=== PATIENT | female | born 1950 | race Hispanic/Latino ===

== ENCOUNTER 2023-12-11 05:01 | Inpatient (IN) | payer OTHER ==
[2023-12-11] MEDS ORDERED: KETOROLAC 30 MG/ML INJ ONE (05:25)
[2023-12-11] MEDS ORDERED: DIPHENHYDRAMINE 50 MG/ML VIAL ONE (05:25)
[2023-12-11] MEDS ORDERED: GUAIFENESIN/DM 5 ML UCUP ONE (05:26)
[2023-12-11] MEDS ORDERED: METOCLOPRAMIDE 10 MG/2mL INJ ONE (05:26)
[2023-12-11] MEDS ORDERED: NA CHLORIDE 0.9% 500 ML ONE (05:26)
[2023-12-11] MEDS ORDERED: MORPHINE 2 MG/ML SYR ONE (05:26)
[2023-12-11 06:32] LABS: Absolute Lymphocytes (CBC) 2.8 K/uL (0.7-4.9); Absolute Monocytes 0.6 K/uL (0.1-1.3); Absolute Neutrophil 1.5 K/uL (1.8-8.0); Basophils % 0.2 % (0-1.3); Eosinophils % 0.2 % (0-4.4); Hematocrit 37.4 % (36.0-45.0); Hemoglobin 12.5 g/dL (12.0-15.0); Lymphocytes % 56.9 % (15.3-44.8); MCH 28.5 pg (27.0-35.0); MCHC 33.4 g/dL (32.0-36.0); MCV 85.5 fL (80-100); MPV 9.8 fL (7.6-11.3); Monocytes % 12.1 % (3.3-12.3); Neutrophils % 30.6 % (41.7-73.7); Nucleated Red Blood Cells % 0.1 % (0-0); Platelets 249 thou/uL (152-406); RBC Red Blood Cell Count 4.37 M/uL (3.86-4.86); Red Cell Distribution Width 13.5 % (12.1-15.2)
[2023-12-11 06:48] LABS: Albumin 4.1 g/dL (3.4-5.0); Albumin/Globulin Ratio 1.2 (1.1-1.8); Anion Gap 16.3 mEq/L (5.0-15.0); Bilirubin Direct 0.2 mg/dL (0-0.2); Bilirubin Indirect, Calculated 0.5 mg/dL (0.2-0.8); Bilirubin Total 0.7 mg/dL (0.2-1.0); Globulin 3.5 g/dL (2.3-3.5); Magnesium 2.4 mg/dL (1.6-2.4); Potassium 4.3 mEq/L (3.5-5.1); Protein, Total 7.6 g/dL (6.4-8.2); Troponin High Sensitivity 12.6 pg/mL (<58.9)
[2023-12-11 07:05] LABS: PT Prothrombin Time 11.3 SECONDS (9.4-12.5); Protime INR 1.01
--- NOTE | 2023-12-11 07:26 | EDPHYS ---
Physician Documentation [facility] Name: Genevieve Loza Age: 73 yrs Sex: Female : 1950 Arrival Date: 12/11/2023 Time: 05:01 Bed 16 Private MD: ED Physician Daniel Bermudez HPI: 12/10 05:08 This 73 yrs old Female presents to ER via Unassigned with complaints of Chest sp4 Pain. 05:48 73-year-old female presents with complaint of feeling unwell, chest pain shortness of sp4 breath generalized weakness after she was diagnosed with coronavirus about 1 week ago. Her prescriber primary physician prescribed her Paxlovid, Paxlovid does not seem to help very well . . Historical: - Allergies: 05:26 No Known Allergies; al5 - PMHx: 05:26 Diabetes mellitus; Hypertensive disorder; al5 - PSHx: 05:26 hysterectomy; al5 - Immunization history:: Adult Immunizations up to date. - Infectious Disease History:: Denies. - Social history:: Smoking status: Patient denies any tobacco usage or history of. - Family history:: not pertinent. ROS: 05:48 Constitutional: Negative for fever, positive for chills, positive generalized weakness, sp4 positive chest pain, positive shortness of breath, positive cough, 05:48 All other systems are negative, Exam: 05:47 Constitutional: This is a well developed, well nourished patient who is awake, alert, sp4 and in no acute distress. Head/Face: Normocephalic, atraumatic. Eyes: Pupils equal round and reactive to light, extra-ocular motions intact. Lids and lashes normal. Conjunctiva and sclera are not injected. Cornea within normal limits. Periorbital areas with no swelling, redness, or edema. ENT: Nares patent. No nasal discharge, no septal abnormalities noted. Tympanic membranes are normal and external auditory canals are clear. Oropharynx with no redness, swelling, or masses, exudates, or evidence of obstruction, uvula midline. Mucous membranes moist. Neck: Trachea midline, no thyromegaly or masses palpated, and no cervical lymphadenopathy. Supple, full range of motion without nuchal rigidity, or vertebral point tenderness. Chest/axilla: Normal chest wall appearance and motion. Nontender with no deformity. No lesions are appreciated. Cardiovascular: Regular rate and rhythm with a normal S1 and S2. No gallops, murmurs, or rubs. Normal PMI, no JVD. No pulse deficits. Respiratory: Lungs have equal breath sounds bilaterally, clear to auscultation and percussion. No rales, rhonchi or wheezes noted. No increased work of breathing, no retractions or nasal flaring. Abdomen/GI: Soft, with normal bowel sounds. No distension or tympany. No guarding or rebound. No evidence of tenderness throughout. Back: No spinal tenderness. No costovertebral tenderness. Skin: Warm, dry with normal turgor. Normal color with no rashes, no lesions, and no evidence of cellulitis. MS/ Extremity: Pulses equal, no cyanosis. Neurovascular intact. Full, normal range of motion. Neuro: Awake and alert, GCS 15, oriented to person, place, time, and situation. Cranial nerves II-XII grossly intact. Motor strength 5/5 in all extremities. Sensory grossly intact. Psych: Awake, alert, with orientation to person, place and time. Behavior, mood, and affect are within normal limits 05:47 ECG was reviewed by the Attending Physician. Vital Signs: 05:15 BP 147 / 75; Pulse 56; Resp 16; Pulse Ox 99% on R/A; al5 05:25 BP 155 / 57; Pulse 56; Resp 18; Temp 97.4(TE); Pulse Ox 99% on R/A; Weight 56.7 kg; al5 Height 5 ft. 0 in. ; Pain 9/10; 05:30 BP 144 / 53; Pulse 53; Resp 14; Pulse Ox 99% on R/A; al5 06:00 BP 114 / 54; Pulse 49; Resp 15; Pulse Ox 96% on R/A; al5 06:30 BP 106 / 63; Pulse 48; Resp 14; Pulse Ox 97% on R/A; al5 07:13 BP 111 / 63; Pulse 50; Resp 17; Pulse Ox 97% on R/A; ap3 05:25 Body Mass Index 24.41 (56.70 kg, 152.4 cm) al5 05:25 Pain Scale: Adult al5 MDM: 05:11 Patient medically screened. sp4 05:48 Differential diagnosis: acute pericarditis, anxiety, chest wall pain, esophagitis, sp4 pleurisy. HEART Score: History: Slightly Suspicious (0), ECG: Normal (0), Age: > or = 65 years (2), Risk Factors: 1 or 2 risk factors (1), Troponin: < or = 1 x Normal Limit (0), Total Score = 3. The patient was not given aspirin in the Emergency Department. Data reviewed: vital signs, nurses notes, old medical records, lab test result(s), EKG, radiologic studies, plain films. ED course: We will proceed with Cardiologic workup.. 07:26 ED course: XR CHEST 1 VIEW CLINICAL INDICATION: Chest pain COMPARISON: Chest radiograph 4 08/29/2022 FINDINGS: LUNGS/PLEURAL SPACES: The lungs are clear. No pleural effusion. No pneumothorax. HEART/MEDIASTINUM: Heart is normal in size. Atherosclerotic calcification at the aortic arch. BONES/UPPER ABDOMEN/SOFT TISSUES: Unremarkable. IMPRESSION: No radiographic evidence of active pulmonary process. . 07:27 ED course: Patient apparently has significant hyponatremia probably secondary to HCTZ. sp4 Warrants repeat BMP and admission for IV saline hydration for further management in the hospital also for management of COVID-19, and evaluation for chest pain. 12/10 05:08 Order name: XRAY Chest (1 view) 4 12/10 05:08 Order name: Basic Metabolic Panel; Complete Time: 07:15 4 12/10 05:08 Order name: CBC with Diff; Complete Time: 07:15 4 12/10 05:08 Order name: LFT's; Complete Time: 07:15 4 12/10 05:08 Order name: Magnesium; Complete Time: 07:15 sp4 12/10 05:08 Order name: NT PRO-BNP; Complete Time: 07:15 4 12/10 05:08 Order name: PT-INR; Complete Time: 07:15 4 12/10 05:08 Order name: Troponin HS; Complete Time: 07:15 sp4 12/10 07:21 Order name: BMP 4 12/10 07:22 Order name: COVID-19 SARS RT PCR 4 12/10 07:22 Order name: Troponin High Sensitivity [facility] 12/10 07:23 Order name: TSH 4 12/10 07:23 Order name: T4 Free 4 12/10 07:24 Order name: Osmolality, Serum la1 12/10 07:24 Order name: Urine Sodium Random la1 12/10 07:24 Order name: Urine Potassium Random la1 12/10 07:24 Order name: Urine Creatinine la1 12/10 07:45 Order name: SARS RAPID ap3 12/10 10:20 Order name: T4 Free EDMS 12/10 10:20 Order name: Thyroid Stimulating Hormone EDMS 12/10 10:49 Order name: Cortisol EDMS 12/10 05:08 Order name: Cardiac monitoring; Complete Time: 05:30 sp4 12/10 05:08 Order name: EKG - Nurse/Tech; Complete Time: 05:30 sp4 12/10 05:08 Order name: IV Saline Lock; Complete Time: 05:50 sp4 12/10 05:08 Order name: Labs collected and sent; Complete Time: 05:50 sp4 12/10 05:08 Order name: O2 Per Protocol; Complete Time: 05:30 sp4 12/10 05:08 Order name: O2 Sat Monitoring; Complete Time: 05:30 sp4 12/10 08:18 Order name: Labs - recollect needed: recollect 2 green tops; Complete Time: 10:04 bd EC:47 Rate is 57 beats/min. Rhythm is regular, Sinus bradycardia. QRS [place] is Normal. AR sp4 interval is normal. QRS interval is normal. QT interval is normal. No Q waves. T waves are Normal. No ST changes noted. Clinical impression: No evidence of ischemia. Interpreted by me. Reviewed by me. Administered Medications: 05:50 Drug: NS 0.9% IV 500 ml IV at bolus once Route: IV; Rate: bolus; Site: left antecubital;al5 06:45 Follow up: Response: No adverse reaction; IV Status: Completed infusion; IV Intake: al5 500ml 05:50 Drug: morphine IVP or IV 2 mg IVP once over 4 mins Route: IVP; Infused Over: 4 mins; al5 Site: left antecubital; 06:45 Follow up: Response: No adverse reaction al5 05:50 Drug: Ketorolac IVP 15 mg IVP once Route: IVP; Site: left antecubital; al5 06:45 Follow up: Response: No adverse reaction al5 05:50 Drug: metoCLOPramide IVP 10 mg IVP once; over 1 to 2 minutes Route: IVP; Site: left al5 antecubital; 06:45 Follow up: Response: No adverse reaction al5 06:45 Follow up: Response: No adverse reaction al5 05:50 Drug: diphenhydrAMINE IVP 12.5 mg IVP once Route: IVP; Site: left antecubital; al5 06:45 Follow up: Response: No adverse reaction al5 05:50 Drug: Dextromethorphan-Guaifenesin PO Liquid 10 mg-100 mg/5 mL 10 ml PO once Route: PO; al5 06:45 Follow up: Response: No adverse reaction al5 07:56 Drug: NS 0.9% IV 1000 ml IV at 100 ml/hr continuous Route: IV; Rate: 100 ml/hr; Site: kc6 left antecubital; Disposition: 07:23 Critical Care: not applicable. sp4 Disposition Summary: 12/11/23 07:26 Hospitalization Ordered Notes: Hospitalization Status: Inpatient Admission sp4 Provider: Bin Padilla sp4 Condition: Guarded sp4 Problem: new sp4 Symptoms: are unchanged sp4 Bed/Room Type: Standard sp4 Location: Intensive Care Unit(12/11/23 12:54) bd Room Assignment: 8-(12/11/23 13:05) bd Diagnosis - Hypo-osmolality and hyponatremia sp4 - Acute COVID-19, hyponatremia, generalized weakness, chest pain, shortness of breath sp4 Forms: - Medication Reconciliation Form sp4 - SBAR form sp4 - Leadership Thank You Letter sp4 Critical care time excluding procedures: 07:23 Critical care time: Bedside Care: 36 minutes, Consultation: 12 minutes, Family sp4 Intervention: 12 minutes. Total time: 60 minutes Signatures: Dispatcher [employer] EDMS Denisse Wall Kaitlyn, RN RN [id number] Daniel Bermudez MD MD sp4 Macie Hayward RN RN al5 Corrections: (The following items were deleted from the chart) 07:22 07:22 SARS-COV-2 RT PCR+MOL.LAB.BRZ ordered. EDMS EDMS 07:23 07:23 THYROID STIMULAT HORMONE+C.LAB.BRZ ordered. EDMS EDMS 07:23 07:23 T4 FREE+C.LAB.BRZ ordered. EDMS EDMS 07:25 07:25 OSMOLALITY, SERUM+SC.LAB.BRZ ordered. EDMS EDMS 07:25 07:25 URINE SODIUM RANDOM+CHEM UR.LAB.BRZ ordered. EDMS EDMS 07:25 07:25 URINE POTASSIUM RANDOM+CHEM UR.LAB.BRZ ordered. EDMS EDMS 07:25 07:25 URINE CREATININE+CHEM UR.LAB.BRZ ordered. EDMS EDMS 07:46 07:46 SARS-COV-2 Antigen Rapid+I.LAB.BRZ ordered. EDMS EDMS 10:51 07:26 Intensive Care Unit sp4 bd 10:51 07:26 sp4 bd 12:54 10:51 [facility] ER HOLD bd bd 12:54 10:51 ERHOLD- bd bd 13:05 12:54 6- bd bd
--- NOTE | 2023-12-11 07:26 | ER ---
Nurse's Notes [facility] Name: Genevieve Loza Age: 73 yrs Sex: Female : 1950 Arrival Date: 12/11/2023 Time: 05:01 Bed 16 Private MD: Diagnosis: Hypo-osmolality and hyponatremia;Acute COVID-19, hyponatremia, generalized weakness, chest pain, shortness of breath Presentation: 12/10 05:25 Chief complaint: Patient states: c/o CP and shortness of breath for past hour, states al5 she was diagnosed with covid 1 week ago. Coronavirus screen: Client reports previous positive COVID test result. Ebola Screen: No symptoms or risks identified at this time. Initial Sepsis Screen: Does the patient meet any 2 criteria? No. Patient's initial sepsis screen is negative. Does the patient have a suspected source of infection? No. Patient's initial sepsis screen is negative. Risk Assessment: Do you want to hurt yourself or someone else? Patient reports no desire to harm self or others. Onset of symptoms was December 11, 2023. 05:25 Method Of Arrival: Ambulatory al5 05:25 Acuity: DILEEP 2 al5 Triage Assessment: 05:27 General: Appears in no apparent distress. Behavior is calm, cooperative. Pain: al5 Complains of pain in chest Pain currently is 9 out of 10 on a pain scale. EENT: No signs and/or symptoms were reported regarding the EENT system. Neuro: Level of Consciousness is awake, alert, obeys commands, Oriented to person, place, time, situation. Cardiovascular: Reports chest pain, Capillary refill < 3 seconds Patient's skin is warm and dry. Rhythm is sinus bradycardia. Respiratory: Airway is patent Respiratory effort is even, unlabored, Respiratory pattern is regular, symmetrical. GI: No signs and/or symptoms were reported involving the gastrointestinal system. : No signs and/or symptoms were reported regarding the genitourinary system. Derm: Skin is intact, Skin is pink, warm \T\ dry. normal. Musculoskeletal: No signs and/or symptoms reported regarding the musculoskeletal system. Historical: - Allergies: 05:26 No Known Allergies; al5 - PMHx: 05:26 Diabetes mellitus; Hypertensive disorder; al5 - PSHx: 05:26 hysterectomy; al5 - Immunization history:: Adult Immunizations up to date. - Infectious Disease History:: Denies. - Social history:: Smoking status: Patient denies any tobacco usage or history of. - Family history:: not pertinent. Screenin:28 [facility] ED Fall Risk Assessment (Adult) History of falling in the last 3 months, al5 including since admission No falls in past 3 months (0 pts) Confusion or Disorientation No (0 pts) Intoxicated or Sedated No (0 pts) Impaired Gait No (0 pts) Mobility Assist Device Used No (0 pt) Altered Elimination No (0 pt) Score/Fall Risk Level 0 - 2 = Low Risk Oriented to surroundings, Maintained a safe environment, Hourly rounding (assess needs \T\ fall precautionary measures) done. Abuse screen: Denies threats or abuse. Denies injuries from another. Nutritional screening: No deficits noted. Tuberculosis screening: No symptoms or risk factors identified. Assessment: 05:28 General: see triage assessment.. Pain: Pain does not radiate. Pain began 1 hour ago. al5 06:30 Reassessment: Patient appears in no apparent distress at this time. Patient and/or al5 family updated on plan of care and expected duration. Pain level reassessed. Patient is alert, oriented x 3, equal unlabored respirations, skin warm/dry/pink. Patient is alert/active/playful, equal unlabored respirations, skin warm/dry/pink. Patient states feeling better. 07:13 Reassessment: Patient and/or family updated on plan of care and expected duration. Pain ap3 level reassessed. Patient is alert, oriented x 3, equal unlabored respirations, skin warm/dry/pink. Vital Signs: 05:15 BP 147 / 75; Pulse 56; Resp 16; Pulse Ox 99% on R/A; al5 05:25 BP 155 / 57; Pulse 56; Resp 18; Temp 97.4(TE); Pulse Ox 99% on R/A; Weight 56.7 kg; al5 Height 5 ft. 0 in. ; Pain 9/10; 05:30 BP 144 / 53; Pulse 53; Resp 14; Pulse Ox 99% on R/A; al5 06:00 BP 114 / 54; Pulse 49; Resp 15; Pulse Ox 96% on R/A; al5 06:30 BP 106 / 63; Pulse 48; Resp 14; Pulse Ox 97% on R/A; al5 07:13 BP 111 / 63; Pulse 50; Resp 17; Pulse Ox 97% on R/A; ap3 05:25 Body Mass Index 24.41 (56.70 kg, 152.4 cm) al5 05:25 Pain Scale: Adult al5 ED Course: 05:07 Patient arrived in ED. jb4 05:08 Daniel Bermudez MD is Attending Physician. sp4 05:14 Macie Hayward, [place] is Primary Nurse. al5 05:26 Triage completed. al5 05:28 Arm band placed on right wrist. Patient placed in the treatment room, on a stretcher. al5 05:28 EKG completed in triage. Results shown to MD. al5 05:29 Patient has correct armband on for positive identification. Bed in low position. Call al5 light in reach. Side rails up X 1. Provided Education on: processes and procedures.. Client placed on continuous cardiac and pulse oximetry monitoring. NIBP monitoring applied. environmental monitoring specialist on. 05:29 No provider procedures requiring assistance completed. O2 via room air. al5 05:50 Initial lab(s) drawn, by me, sent to lab. EKG done, by ED staff, reviewed by Daniel Bermudez MD. Inserted saline lock: 22 gauge in left antecubital area, using aseptic technique. Blood collected. 06:02 XRAY Chest (1 view) In Process Unspecified. EDMS 06:46 Troponin HS Sent. al5 06:46 PT-INR Sent. al5 06:46 NT PRO-BNP Sent. al5 06:46 Basic Metabolic Panel Sent. al5 06:46 CBC with Diff Sent. al5 06:46 LFT's Sent. al5 06:46 Magnesium Sent. al5 07:24 Bin Padilla MD is Hospitalizing Provider. sp4 13:05 quick report given to Beau Cat RN in ICU. Will get bedside report/further ll1 information from the admitting RN. Administered Medications: 05:50 Drug: NS 0.9% IV 500 ml IV at bolus once Route: IV; Rate: bolus; Site: left antecubital;al5 06:45 Follow up: Response: No adverse reaction; IV Status: Completed infusion; IV Intake: al5 500ml 05:50 Drug: morphine IVP or IV 2 mg IVP once over 4 mins Route: IVP; Infused Over: 4 mins; al5 Site: left antecubital; 06:45 Follow up: Response: No adverse reaction al5 05:50 Drug: Ketorolac IVP 15 mg IVP once Route: IVP; Site: left antecubital; al5 06:45 Follow up: Response: No adverse reaction al5 05:50 Drug: metoCLOPramide IVP 10 mg IVP once; over 1 to 2 minutes Route: IVP; Site: left al5 antecubital; 06:45 Follow up: Response: No adverse reaction al5 06:45 Follow up: Response: No adverse reaction al5 05:50 Drug: diphenhydrAMINE IVP 12.5 mg IVP once Route: IVP; Site: left antecubital; al5 06:45 Follow up: Response: No adverse reaction al5 05:50 Drug: Dextromethorphan-Guaifenesin PO Liquid 10 mg-100 mg/5 mL 10 ml PO once Route: PO; al5 06:45 Follow up: Response: No adverse reaction al5 07:56 Drug: NS 0.9% IV 1000 ml IV at 100 ml/hr continuous Route: IV; Rate: 100 ml/hr; Site: kc6 left antecubital; Medication: 05:29 VIS not applicable for this client. al5 Intake: 06:45 IV: 500ml; Total: 500ml. al5 Outcome: 07:26 Decision to Hospitalize by Provider. sp4 13:18 Patient left the ED. oe Signatures: Dispatcher [employer] EDMS Jean Horner RN RN Veto Arreola Amanda, RN RN ap3 Lewis, Lynsay, RN RN ll1 Anni Marshall RN RN [email or web address] Daniel Bermudez MD MD sp4 Macie Hayward RN RN al5
[2023-12-11] MEDS ORDERED: LORAZEPAM 1 MG TABLET ONE (07:40)
[2023-12-11] MEDS ORDERED: ACETAMINOPHEN 500 MG TAB ONE (07:40)
[2023-12-11] MEDS ORDERED: NA CHLORIDE 0.9% 1,000 ML ONE (07:49)
[2023-12-11 08:37] LABS: SARS-CoV-2 Antigen CONTROL BLUE LINE VIS/BG OK
[2023-12-11 08:38] LABS: SARS-CoV-2 Antigen Rapid Res Positive (Negative)
--- NOTE | 2023-12-11 08:45 | P.HP ---
Certification for Inpatient Patient admitted to: Inpatient With expected LOS: >2 Midnights Patient will require the following post-hospital care: None Practitioner: I am a practitioner with admitting privileges, knowledge of patient current condition, hospital course, and medical plan of care. Services: Services provided to patient in accordance with Admission requirements found in Title 42 Section 412.3 of the Code of Federal Regulations Patient History Date of Service: 12/11/23 Reason for admission: Hyponatremia History of Present Illness: 73-year-old female with history of hypertension, prediabetes, hypothyroidism presents emergency department for chief complaint of chest pain. She reports the she was diagnosed with COVID on 12/03 as well as being started on Paxlovid, hydrochlorothiazide at that time. On 12/04 and 12/05 she had some nausea/vomiting/diarrhea which has since improved. She was evaluated in the emergency department and found to be severely hyponatremic with a sodium of 115 chloride of 83 creatinine 1.14. No known history of hyponatremia, again patient had recently started hydrochlorothiazide about a week ago and having poor oral intake given her viral illness as well as some nausea and vomiting and diarrhea. She is currently mentating well, oriented x 4. Initial hesitancy troponin is negative chest x-ray negative for acute findings. ED prior wishes to admit patient for further evaluation and management of severe hyponatremia, chest pain. - Past Medical/Surgical History -: Prediabetes -: Hypertension -: Hypothyroidism -: Hysterectomy Psychosocial/ Personal History: Lives at home with her - Family History Mother -: Diabetes - Social History Smoking Status: Never smoker Alcohol use: No CD- Drugs: No Caffeine use: Yes Place of Residence: Home Review of Systems 10-point ROS is otherwise unremarkable General: Weakness, Malaise Cardiovascular: Chest Pain Physical Examination - Physical Exam General: Alert, In no apparent distress, Oriented x3 HEENT: Atraumatic, PERRLA, Other (Mucous membranes dry), EOMI Neck: Supple, 2+ carotid pulse no bruit Respiratory: Clear to auscultation bilaterally, Normal air movement Cardiovascular: Regular rate/rhythm, Normal S1 S2 Gastrointestinal: Normal bowel sounds, No tenderness Musculoskeletal: No tenderness Integumentary: No rashes Neurological: Normal gait, Normal speech, Normal strength at 5/5 x4 extr, Normal tone - Studies Laboratory Data (last 24 hrs) 12/11/23 12/11/23 12/11/23 05:35 05:35 05:35 WBC 4.90 Hgb 12.5 Hct 37.4 Plt Count 249 PT 11.3 INR 1.01 Sodium 115 L* Potassium 4.3 BUN 17 Creatinine 1.14 H Glucose 112 H Magnesium 2.4 Total Bilirubin 0.7 AST 27 ALT 27 Alkaline Phosphatase 82 Assessment and Plan - Plan Assessment: Severe hyponatremia Chest pain rule out ACS COVID-19 viral illness Hypertension Hypothyroidism Prediabetes Plan: Severe hyponatremia Started on HCTZ~12/03-discontinue Also reports poor oral intake with viral illness Some nausea/vomiting on 12/04 12/05 Continue gentle IV fluids, nephrology consult placed Additional labs ordered Chest pain rule out ACS Initial high-sensitivity troponin negative, will trend and monitor on telemetry Consult cardiology if troponin is positive or there is ongoing chest pain COVID-19 viral illness Seems to be recovering, taking Paxlovid On room air Hypertension Hold HCTZ, continue other home medication Hypothyroidism TSH ordered Continue home medications Prediabetes Monitor glucose with daily labs Consider sliding scale if persistently elevated DVT PPX: Lovenox Code status: Full Discharge Plan: Home Plan to discharge in: Greater than 2 days - Advance Directives Does patient have a Living Will: No Does patient have a Durable POA for Healthcare: No - Code Status/Comfort Care Code Status Assessed: Yes (Full code) Critical Care: No Time Spent Managing Pts Care (In Minutes): 70
[2023-12-11] MEDS ORDERED: ACETAMINOPHEN 500 MG TAB PO PRN (10:05)
[2023-12-11] MEDS ORDERED: ONDANSETRON 4 MG/2 ML VIAL IV PRN (10:05)
[2023-12-11 10:07] VITALS: BMI 24.4
[2023-12-11] MEDS: NA CHLORIDE 0.9% 1,000 ML IV SCH ×3 (10:09→20:38)
[2023-12-11] MEDS ORDERED: ENOXAPARIN 40 MG/0.4 ML SQ ONE (10:16)
[2023-12-11] MEDS ORDERED: ASPIRIN 81 MG CHEWABLE TABLET ONE (10:16)
[2023-12-11 10:17] LABS: Anion Gap 13.1 mEq/L (5.0-15.0); Potassium 4.1 mEq/L (3.5-5.1); Troponin High Sensitivity 15.4 pg/mL (<58.9)
[2023-12-11] MEDS ORDERED: ASPIRIN EC 81 MG TAB PO ONE (10:18)
[2023-12-11 10:20] LABS: Thyroid Stimulating Hormone 3.86 uIU/mL (0.358-3.740)
[2023-12-11] MEDS: ENOXAPARIN 40 MG/0.4 ML SQ SCH (10:30)
[2023-12-11] MEDS: ASPIRIN EC 81 MG TAB PO SCH (10:30)
--- NOTE | 2023-12-11 12:36 | RAD REPORT ---
EXAM DESCRIPTION: Chest Single View CLINICAL HISTORY: Chest pain COMPARISON: Chest radiograph 08/29/2022 FINDINGS: LUNGS/PLEURAL SPACES: The lungs are clear. No pleural effusion. No pneumothorax. HEART/MEDIASTINUM: Heart is normal in size. Atherosclerotic calcification at the aortic arch. BONES/UPPER ABDOMEN/SOFT TISSUES: Unremarkable. IMPRESSION: No radiographic evidence of active pulmonary process. Electronically signed by: Jennifer Reyes MD 12/11/2023 07:02 AM CDT RP Due to temporary technical issues with the PACS/Fluency reporting system, reports are being signed by the in house radiologist without review as a courtesy to ensure prompt reporting. The interpreting r adiologist is fully responsible for the content of the report
[2023-12-11 14:20] LABS: Troponin High Sensitivity 14.2 pg/mL (<58.9)
--- NOTE | 2023-12-11 14:46 | CON ---
Date of Consultation: 12/11/2023 Reason For Consultation: Hyponatremia, hypertension. History Of Present Illness: This is a pleasant 73-year-old female with significant past medical history of hypertension, hyperlipidemia, COVID, hypothyroidism, patient came to the hospital complaining from weakness. The patient's primary workup showed sodium 115. For that reason, we have been consulted. Patient recently started on hydrochlorothiazide a few days ago. Patient has nausea and vomiting with the diarrhea. The patient denied any history of hyponatremia before. Denied any rash. Past Medical History: Include: 1. Prediabetes. 2. Hypertension. 3. Hypothyroidism. Past Surgical History: Include hysterectomy. Family History: Positive for diabetes and hypertension. Social History: Denied smoking. Denied drinking. Denied drugs abuse. Review of Systems: Head and Neck: No red eye. No ear pain. GI: Has nausea, vomiting. : No polyuria. No dysuria. No hematuria. Produce Runner: No vaginal discharge respiratory. Respiratory: Has shortness of breath. Cardiovascular: No chest pain. Endocrine: No polydipsia. Skin: No rash. Neuro: Has weakness. Generalized ache. Physical Examination: Vital Signs: Blood pressure of 114/78, pulse of 88. Chest: Clear to auscultation. Heart: S1, S2. Regular. Abdomen: Soft, nontender. Extremity: No edema. Neuro: Alert. No focality. No tremor. Laboratory Data: WBC 4.9, hemoglobin 12.5. Sodium 117, potassium 4.1, bicarb 21, BUN 15, creatinine 1.1, GFR 53, calcium 8.3, TSH 3.8, cortisol still pending. Urine still pending. Assessment And Plan: 1. Hyponatremia, mostly induced by dehydration superimposed with hydrochlorothiazide, supported with high urine osmolality. I am going to go ahead and continue with the hydration for the patient. Increase IV fluid to 100 per hour. We will send for the workup. I agree with holding the hydrochlorothiazide and we will follow up. 2. Hypertension, controlled, optimal with the presence of hyponatremia. Discontinue hydrochlorothiazide. Okay if needed to resume JOHNNY inhibitor. 3. COVID, status post treatment, recovered, resolved. 4. Acute kidney injury secondary to prerenal, superimposed with JOHNNY inhibitor. We will follow up after holding hydrochlorothiazide. Continue hydration. Okay to resume JOHNNY inhibitor, if needed. We will send for PC ratio. Thank you, Dr. Padilla, for allowing us to participate in the care of your patient. Time spent examining the patient [id number] reviewing data lab and the radiology placing orders discussing the case with the patient discussing the case with the produce service team member including hospitalist and nursing staff more than 75 minutes JESIKA Voice ID: [id number] Report ID: [id number] ANNALEE
[2023-12-11 18:09] LABS: Specific Gravity < 1.005 (1.005-1.030); Urine Bilirubin NEGATIVE (Negative); Urine Blood Negative (Negative); Urine Clarity Clear (Clear); Urine Color Colorless (Yellow); Urine Glucose NEGATIVE (Negative); Urine Ketones NEGATIVE (Negative); Urine Microscopic Reflex YN NO UMIC; Urine Nitrite NEGATIVE (Negative); Urine Protein NEGATIVE (Negative); Urine Urobilinogen Normal (Normal); Urine pH 6.5 (5.0-7.0)
[2023-12-11 18:18] LABS: Anion Gap 11.2 mEq/L (5.0-15.0); Potassium 4.2 mEq/L (3.5-5.1); Troponin High Sensitivity 14.2 pg/mL (<58.9)
[2023-12-11 18:23] LABS: UR CREAT < 18.0 mg/dL (20-320); UR PROTEIN < 5.0 mg/dL (<11.9); Urine Protein/Creatinine Ratio ND ratio (<0.15)
[2023-12-11 23:52] LABS: Sqamous Epithelial None Seen /HPF (None Seen); Urine Bacteria <20 /HPF (<20); Urine Culture Reflex Order NOT NEEDED; Urine Micro Reflex YN NO BILL MICROSCOPIC; Urine RBC <5 /HPF (None Seen); Urine WBC <5 /HPF (<5)
[2023-12-12 04:50] LABS: Anion Gap 9.9 mEq/L (5.0-15.0); Potassium 3.9 mEq/L (3.5-5.1)
[2023-12-12 05:24] LABS: Absolute Monocytes 0.5 K/uL (0.1-1.3); Basophils % 0.4 % (0-1.3); Eosinophils % 0.7 % (0-4.4); Hemoglobin 11.7 g/dL (12.0-15.0); MCH 29.3 pg (27.0-35.0); MCHC 34.4 g/dL (32.0-36.0); MCV 85.1 fL (80-100); MPV 10.5 fL (7.6-11.3); Monocytes % 11.2 % (3.3-12.3); Neutrophils % 21.7 % (41.7-73.7); Nucleated Red Blood Cells % 0.2 % (0-0); Platelets 217 thou/uL (152-406); RBC Red Blood Cell Count 3.99 M/uL (3.86-4.86); Red Cell Distribution Width 13.6 % (12.1-15.2)
[2023-12-12] MEDS: LEVOTHYROXINE SOD 0.125 MG TAB PO SCH (06:30)
[2023-12-12 07:06] LABS: Albumin 3.6 g/dL (3.4-5.0); Albumin/Globulin Ratio 1.2 (1.1-1.8); Anion Gap 11.2 mEq/L (5.0-15.0); Bilirubin Total 0.4 mg/dL (0.2-1.0); Globulin 2.9 g/dL (2.3-3.5); Magnesium 2.6 mg/dL (1.6-2.4); Phosphorus 2.7 mg/dL (2.5-4.9); Potassium 4.2 mEq/L (3.5-5.1); Protein, Total 6.5 g/dL (6.4-8.2)
[2023-12-12] MEDS ORDERED: D5W 1,000 ML IV SCH (08:00)
--- NOTE | 2023-12-12 08:58 | P.PN ---
Date of Service: 12/12/23 Subjective: Feeling much better today tolerating diet/PO ambulatory will downgrade from ICU ROS: 10 point ROS as noted above, otherwise negative Physical exam GEN: Alert, oriented, NAD HEENT: Normal conjunctiva, sclera anicteric CV: Regular rate and rhythm, no edema Pulm: Nonlabored respirations on room air ABD: Soft, nontender, nondistended MSK: No joint tenderness Integumentary: No rashes Neuro: Normal speech, normal affect Vitals reviewed Assessment: Severe hyponatremia Chest pain rule out ACS COVID-19 viral illness Hypertension Hypothyroidism Prediabetes Plan: Severe hyponatremia Started on HCTZ~12/03-discontinue Also reports poor oral intake with viral illness Some nausea/vomiting on 12/04 12/05 Nephrology following Sodium improving Encourage PO intake Chest pain rule out ACS Troponin negative x3 Continue to monitor on tele COVID-19 viral illness Seems to be recovering, received Paxlovid On room air Hypertension Hold HCTZ BP soft, hold anti hypertensives Hypothyroidism TSH slightly elevated, T4 WNL Continue home medications Prediabetes Monitor glucose with daily labs Consider sliding scale if persistently elevated DVT PPX: Lovenox Code status: Full Discharge Plan: Home Plan to discharge in: 1-2 days Time Spent Managing Pts Care (In Minutes): 35
[2023-12-12] MEDS ORDERED: LEVOTHYROXINE SOD 0.125 MG TAB PO SCH (09:00)
[2023-12-12 09:03] LABS: Atypical Lymphocytes 3 %; Blood Morphology Comment NOT SEEN (NOT SEEN); Differential Total Cells Count 100; Eosinophils 2 % (0-3); Lymphocytes 66 % (15-42); Monocytes 12 % (0-10); Platelet Estimate ADEQ; Segmented Neutrophils 17 % (40-80)
--- NOTE | 2023-12-12 11:43 | PN ---
Date of Progress Note: 12/12/2023 Subjective: Patient was admitted with COVID, had hyponatremia, mostly secondary to hydrochlorothiazide induced. Patient was started on IV fluid. Sodium trending up, appropriate rise. Objective: Vital Signs: Blood pressure 110/54, pulse of 55, afebrile. Chest: Clear to auscultation. Heart: S1, S2. Regular. Abdomen: Soft, nontender. Extremities: No edema. Neuro: Alert. No focality. Laboratory Data: WBC 4.6, hemoglobin 11.7, sodium 129, potassium 4.2, bicarb 23, BUN 13, creatinine 0.9, calcium 8.1, phosphorus 2.7. Current Medications: The patient on include aspirin, Lovenox, Tylenol, Zofran, levothyroxine, IV fluid at 50 per hour of normal saline. Assessment And Plan: 1. Hyponatremia, mostly hydrochlorothiazide induced, doubt to be ADH mediated secondary to atypical pneumonia, secondary to COVID. As sodium has improved significantly after holding the hydrochlorothiazide and IV fluid, currently appropriate correction of 14 points in the last 26 hours, I will discontinue IV fluid. We will repeat lab in 6 hours and we will follow up. 2. Hypertension, controlled, optimal. Keep holding hydrochlorothiazide. 3. COVID. Follow up with the Primary. 4. Acute kidney injury secondary to prerenal, recovered, resolved. Time spent examining the patient [id number] reviewing data lab and the radiology placing orders discussing the case with the patient discussing the case with the team assembler including hospitalist and nursing staff more than 55 minutes JESIKA Voice ID: [id number] Report ID: [id number] ANNALEE
--- NOTE | 2023-12-12 11:47 | EKG ---
Test Date: 2023-12-11 Test Time: 05:21:46 Street Engineer: YUMIKO MEASUREMENT RESULTS: Intervals: Rate: 57 KS: 148 QRSD: 88 QT: 458 QTc: 445 [place]: P: 73 KS: 148 QRS: 46 T: 58 INTERPRETIVE STATEMENTS: Sinus bradycardia Otherwise normal ECG Compared to ECG 01/19/2000 01:04:00 Sinus rhythm no longer present Electronically Signed On 12-12-23 11:44:10 CDT by Marcelo Quan
[2023-12-12 13:34] LABS: Anion Gap 11.1 mEq/L (5.0-15.0); Potassium 4.1 mEq/L (3.5-5.1)
[2023-12-12 13:40] LABS: Sqamous Epithelial <5 /HPF (None Seen); Urine Bacteria None Seen /HPF (<20); Urine Culture Reflex Order NOT NEEDED; Urine Micro Reflex YN NO BILL MICROSCOPIC; Urine Mucus Slight /HPF (None Seen); Urine RBC <5 /HPF (None Seen); Urine WBC <5 /HPF (<5)
[2023-12-12] MEDS: GUAIFENESIN 600 MG SA TAB PO ONE (22:12)
[2023-12-13 06:05] LABS: Absolute Eosinophils 0.1 K/uL (0-0.5); Absolute Lymphocytes (CBC) 3.4 K/uL (0.7-4.9); Absolute Monocytes 0.6 K/uL (0.1-1.3); Absolute Neutrophil 2.5 K/uL (1.8-8.0); Basophils % 0.3 % (0-1.3); Eosinophils % 0.8 % (0-4.4); Hematocrit 35.3 % (36.0-45.0); Hemoglobin 11.7 g/dL (12.0-15.0); Lymphocytes % 51.2 % (15.3-44.8); MCH 28.8 pg (27.0-35.0); MCHC 33.1 g/dL (32.0-36.0); Monocytes % 9.2 % (3.3-12.3); Neutrophils % 38.5 % (41.7-73.7); Platelets 281 thou/uL (152-406); RBC Red Blood Cell Count 4.06 M/uL (3.86-4.86); Red Cell Distribution Width 13.3 % (12.1-15.2)
[2023-12-13 06:21] LABS: Albumin 3.8 g/dL (3.4-5.0); Albumin/Globulin Ratio 1.3 (1.1-1.8); Anion Gap 4.5 mEq/L (5.0-15.0); Bilirubin Total 0.3 mg/dL (0.2-1.0); Globulin 2.9 g/dL (2.3-3.5); Magnesium 2.4 mg/dL (1.6-2.4); Phosphorus 2.9 mg/dL (2.5-4.9); Potassium 4.5 mEq/L (3.5-5.1); Protein, Total 6.7 g/dL (6.4-8.2)
[2023-12-13 09:14] VITALS: O2SAT 98
--- NOTE | 2023-12-13 12:04 | PN ---
Date of Progress Note: 12/13/2023 Subjective: The patient was admitted with hyponatremia induced with hydrochlorothiazide. The patient recovered after hydration. Physical Examination: Vital Signs: Blood pressure 159/56, pulse of 53, afebrile. Chest: Clear to auscultation. Heart: S1, S2. Regular. Abdomen: Soft, nontender. Extremities: No edema. Neurologic: Alert. No focality. No tremor. Laboratory Data: Hemoglobin 11.7. Sodium 132, potassium 4.1, bicarb 28, BUN 19, creatinine down to 1. GFR 57. Calcium 8.3. Phosphorus 2.9, magnesium 2.4. Current Medications: The patient is on include aspirin, Lovenox, Tylenol, levothyroxine. Assessment And Plan: 1. Acute kidney injury secondary to prerenal, secondary to hydrochlorothiazide and losartan, recovered, resolved. I am going to go ahead and resume losartan. Keep holding hydrochlorothiazide. 2. Hyponatremia secondary to hydrochlorothiazide, recovered, resolved. Discontinue IV fluid for the last 24 hours. Keep holding hydrochlorothiazide. Okay to resume losartan. 3. Hypertension, not controlled. Resume losartan. 4. COVID, as by primary. Time spent examining the patient [id number] reviewing data lab and the radiology placing orders discussing the case with the patient discussing the case with the state farm agent team member including hospitalist and nursing staff more than 55 minutes JESIKA Voice ID: [id number] Report ID: [id number]
[2023-12-13 12:29] VITALS: BP 108/56; TEMP 97.3
--- NOTE | 2023-12-13 12:36 | P.DS ---
Admission Date: 12/11/23 Discharge Date: 12/13/23 Disposition: ROUTINE DISCHARGE Discharge Condition: GOOD Reason for Admission: Hyponatremia Consultations: NephrologyDr. Rojo Brief History of Present Illness: 73-year-old female with history of hypertension, prediabetes, hypothyroidism presents emergency department for chief complaint of chest pain. She reports the she was diagnosed with COVID on 12/03 as well as being started on Paxlovid, hydrochlorothiazide at that time. On 12/04 and 12/05 she had some nausea/vomiting/diarrhea which has since improved. She was evaluated in the emergency department and found to be severely hyponatremic with a sodium of 115 chloride of 83 creatinine 1.14. No known history of hyponatremia, again patient had recently started hydrochlorothiazide about a week ago and having poor oral intake given her viral illness as well as some nausea and vomiting and diarrhea. She is currently mentating well, oriented x 4. Initial hesitancy troponin is negative chest x-ray negative for acute findings. ED prior wishes to admit patient for further evaluation and management of severe hyponatremia, chest pain. Hospital Course: Assessment: Severe hyponatremia Chest pain rule out ACS COVID-19 viral illness Hypertension Hypothyroidism Prediabetes Patient was admitted to the hospital for hyponatremia. Her initial sodium was 115. She reported that she was recently started on hydrochlorothiazide and has also been sick with COVID the past week having GI symptoms including nausea/vomiting and poor oral intake. She is initially admitted to the ICU given profound hyponatremia and treated with gentle IV fluids. Her sodium slowly improved and is up to 132 today, renal function remained stable. She was seen by nephrology recommend discontinuation of hydrochlorothiazide and encourage oral intake. Patient is been tolerating diet during hospitalization still much better at this time. Stable for discharge. Please stop taking hydrochlorothiazide You may resume your olmesartan for blood pressure. Please follow-up with your primary care doctor 1 to 2 weeks You should also follow-up with nephrologyDr. Rojo in 1 to 2 weeks Vital Signs/Physical Exam: Temp Pulse Resp BP Pulse Ox 97.3 F 55 16 108/56 L 97 12/13/23 11:00 12/13/23 11:00 12/13/23 11:00 12/13/23 11:00 12/13/23 11:00 General: Alert, In no apparent distress, Oriented x3 HEENT: Atraumatic, PERRLA Neck: Supple, JVD not distended Respiratory: Clear to auscultation bilaterally, Normal air movement Cardiovascular: Regular rate/rhythm, Normal S1 S2 Gastrointestinal: Normal bowel sounds, No tenderness Musculoskeletal: No tenderness Integumentary: No rashes Neurological: Normal speech, Normal tone, Normal affect Laboratory Data at Discharge: WBC 6.60 thou/uL (4.3-10.9) 12/13/23 05:51 Hgb 11.7 g/dL (12.0-15.0) L 12/13/23 05:51 Hct 35.3 % (36.0-45.0) L 12/13/23 05:51 Plt Count 281 thou/uL (152-406) D 12/13/23 05:51 PT 11.3 SECONDS (9.4-12.5) 12/11/23 05:35 INR 1.01 12/11/23 05:35 Sodium 132 mEq/L (136-145) L D 12/13/23 05:51 Potassium 4.5 mEq/L (3.5-5.1) 12/13/23 05:51 BUN 19 mg/dL (7-18) H 12/13/23 05:51 Creatinine 1.03 mg/dL (0.55-1.02) H 12/13/23 05:51 Glucose 108 mg/dL (74-106) H 12/13/23 05:51 Uric Acid 4.4 mg/dL (2.6-6.0) 12/11/23 17:33 Phosphorus 2.9 mg/dL (2.5-4.9) 12/13/23 05:51 Magnesium 2.4 mg/dL (1.6-2.4) 12/13/23 05:51 Total Bilirubin 0.3 mg/dL (0.2-1.0) 12/13/23 05:51 AST 18 U/L (15-37) 12/13/23 05:51 ALT 28 U/L (13-56) 12/13/23 05:51 Alkaline Phosphatase 69 U/L (45-117) 12/13/23 05:51 Home Medications: Aspirin 81 mg PO DAILY 12/11/23 Levothyroxine Sodium [Synthroid] 125 mcg PO DAILY 12/11/23 Metformin ER [Glucophage ER*] 500 mg PO DAILY 12/11/23 Nirmatrelvir/Ritonavir [Paxlovid 300-100 mg Dose Pack] 100 - 300 mg PO DAILY 12/11/23 Olmesartan Medoxomil 20 mg PO BEDTIME 12/11/23 hydroCHLOROthiazide [Hydrochlorothiazide] 25 mg PO DAILY 12/11/23 Physician Discharge Instructions: Patient was admitted to the hospital for hyponatremia. Her initial sodium was 115. She reported that she was recently started on hydrochlorothiazide and has also been sick with COVID the past week having GI symptoms including nausea/vomiting and poor oral intake. She is initially admitted to the ICU given profound hyponatremia and treated with gentle IV fluids. Her sodium slowly improved and is up to 132 today, renal function remained stable. She was seen by nephrology recommend discontinuation of hydrochlorothiazide and encourage oral intake. Patient is been tolerating diet during hospitalization still much better at this time. Stable for discharge. Please stop taking hydrochlorothiazide You may resume your olmesartan for blood pressure. Please follow-up with your primary care doctor 1 to 2 weeks You should also follow-up with nephrologyDr. Darrel in 1 to 2 weeks Diet: Regular Activity: Ad royer Followup: Barry Rojo MD [ACTIVE - CAN ADMIT] - 1-2 Weeks Emmanuel Perry MD [Primary Care Provider] - 1-2 Weeks Time spent managing pt's care (in minutes): 35
[2023-12-14] MEDS ORDERED: LOSARTAN POTASSIUM 50 MG TABLET PO SCH (09:00)
== END 2023-12-13 13:30 | disposition home or self-care (01) | DRG 640 ==
LOC: ER 05:01 → ERHOLD 08:07 → 3RD-ICU 13:12 → 4TH 12-12 17:39
PROVIDERS: ADMIT Hospitalist; ATTEND Hospitalist
DX: E87.1 Hypo-osmolality and hyponatremia (principal); U07.1 COVID-19; N17.9 Acute kidney failure, unspecified; I10 Essential (primary) hypertension; E86.0 Dehydration; E78.5 Hyperlipidemia, unspecified; E03.9 Hypothyroidism, unspecified; T50.2X5A Adverse effect of carbonic-anhydrase inhibitors, benzothiadiazides and other diuretics, initial encounter; R73.03 Prediabetes; Z79.82 Long term (current) use of aspirin; Z79.84 Long term (current) use of oral hypoglycemic drugs; Z79.890 Hormone replacement therapy; Z79.899 Other long term (current) drug therapy; Z90.710 Acquired absence of both cervix and uterus
CPT/HCPCS: 36415; 71045; 80048; 80053; 80069; 80076; 81003; 81015; 82533; 82570; 83735; 83880; 83930; 84132; 84156; 84300; 84439; 84443; 84484; 84550; 85025; 85610; 87811; 93005; 96361; 96374; 96375; 99285; J1200; J1650; J2270; J2765; J7030; J7040